=== PATIENT | male | born 1995 | race Caucasian/White ===

== ENCOUNTER 2016-10-17 16:15 | Emergency (ER) | payer OTHER ==
[2016-10-17 16:25] VITALS: BP 145/78; PULSE 67; RESP 18; TEMP 98.4; O2SAT 100
[2016-10-17] MEDS ORDERED: FLUORESCEIN SODIUM 1 MG STRIP OP ONE (16:25)
[2016-10-17] MEDS ORDERED: PROPARACAINE 0.5% 15 ML OPHT DROP ONE (16:25)
--- NOTE | 2016-10-17 16:54 | EDPHY ---
H & P Smoking Status: Never smoked Time Seen by Provider: 10/17/16 16:23 HPI/ROS: CHIEF COMPLAINT: Left eye complaint HISTORY OF PRESENT ILLNESS: 21-year-old male presents emergency department reporting he feels like there is something in his left eye. Patient was walking on campus today when he felt something go into his eye 1 hour prior to arrival. Patient states he tried to get this out by flushing his eye and it still feels like there is something in there. Patient reports it is tearing. He denies blurred vision. He does not were contact lenses, tetanus is up-to- date. (Bhavna Eldridge) Physical Exam: Left eye Visual Acuity: Noted from Nurse's notes. Pupils: PERRLA, EOMI, no nystagmus, no trauma, no injection. Lids: No edema or swelling, no foreign body noted on lid eversion Skin: No proptosis, no periorbital erythema or swelling, no vesicles Conjunctivae: injected injected, not icteric, no discharge Cornea: Exam with slit lamp and fluoroscein shows corneal abrasion to 1:00 position, negative Denise Anterior chamber: Normal, no hyphema or hypopyon (Bhavna Eldridge) Constitutional: Initial Vital Signs Temperature (C) 36.9 C 10/17/16 16:22 Heart Rate 67 10/17/16 16:22 Respiratory Rate 18 10/17/16 16:22 Blood Pressure 145/78 H 10/17/16 16:22 O2 Sat (%) 100 10/17/16 16:22 O2 Delivery Mode Room Air Allergies/Adverse Reactions: No Known Allergies Allergy (Unverified 10/17/16 16:22) Home Medications: Medication Instructions Recorded Doxycycline Hyclate 10/17/16 Erythromycin 0.5% 1 damon OP QID #10 gm 10/17/16 MDM/Departure - MDM ED Course/Re-evaluation: 21-year-old male with corneal abrasion to left eye. Tetanus is up-to-date, negative Denise. He is given a prescription for erythromycin ointment and Ophthalmology for follow-up. (Bhavna Eldridge) The patient was evaluated and managed by the Physician Tool Or Die Drawing Checker/ Nurse Practitioner. My co-signature indicates that I have reviewed this chart and I agree with the findings and plan of care as documented. I am the secondary supervising physician. (Aure Olivas) - Depart Disposition: Home, Routine, Self-Care Clinical Impression: Corneal abrasion Qualifiers: Encounter type: initial encounter Laterality: left Qualified Code(s): S05.02XA - Injury of conjunctiva and corneal abrasion without foreign body, left eye, initial encounter Condition: Good Instructions: Corneal Abrasion (ED) Additional Instructions: Use antibiotic ointment as prescribed 4 times a day for 7 days. You can use saline wetting drops has much as you need for comfort. Follow up with the regional sales manager for symptoms that are not improving in the next 24-48 hours. Return to the emergency department for worsening symptoms, new symptoms or concerns. Prescriptions: Erythromycin 0.5% 1 damon OP QID #10 gm Referrals: Zak Gupta MD [Medical Doctor] - As per Instructions (Data Clerk)
== END 2016-10-17 17:06 | disposition home or self-care (01) ==
DX: S05.02XA Injury of conjunctiva and corneal abrasion without foreign body, left eye, initial encounter (principal); X58.XXXA Exposure to other specified factors, initial encounter